=== PATIENT | female | born 1980 | race Caucasian/White ===

== ENCOUNTER 2020-07-07 09:16 | Outpatient (CLI) | payer OTHER | END 2020-07-07 09:17 | disposition home or self-care (01) | LOC: CSHMAMMO 09:16 | PROVIDERS: ATTEND Obstetrics & Gynecology | DX: Z12.31 Encounter for screening mammogram for malignant neoplasm of breast (principal); R92.8 Other abnormal and inconclusive findings on diagnostic imaging of breast | CPT/HCPCS: 77063; 77067 ==

== ENCOUNTER 2020-07-09 09:03 | Outpatient (CLI) | payer OTHER | END 2020-07-09 09:04 | disposition home or self-care (01) | LOC: CSHMAMMO 09:03 | PROVIDERS: ATTEND Obstetrics & Gynecology | DX: R92.8 Other abnormal and inconclusive findings on diagnostic imaging of breast (principal) | CPT/HCPCS: G0279 ==

== ENCOUNTER 2021-07-10 09:01 | Outpatient (CLI) | payer OTHER | END 2021-07-10 09:02 | disposition home or self-care (01) | LOC: CSHMAMMO 09:01 | PROVIDERS: ATTEND Obstetrics & Gynecology | DX: Z12.31 Encounter for screening mammogram for malignant neoplasm of breast (principal) | CPT/HCPCS: 77063; 77067 ==

== ENCOUNTER 2022-08-12 08:14 | Outpatient (CLI) | payer OTHER | END 2022-08-12 08:15 | disposition home or self-care (01) | LOC: CSHMAMMO 08:14 | PROVIDERS: ATTEND Obstetrics & Gynecology | DX: Z12.31 Encounter for screening mammogram for malignant neoplasm of breast (principal) | CPT/HCPCS: 77063; 77067 ==